=== PATIENT | female | born 1960 | race Caucasian/White ===

== ENCOUNTER 2016-08-28 11:05 | Emergency (ER) | payer OTHER ==
[2016-08-28] MEDS ORDERED: ONDANSETRON 4MG/2ML VIAL (J2405) As Ordered ONE (11:48)
[2016-08-28] MEDS ORDERED: MORPHINE 4 MG/ML 1ML SYRINGE As Ordered ONE (11:48)
[2016-08-28 12:03] LABS: BASO % 0.3 % (0.0-1.0); EOS # 0.1 K/mm3 (0.0-0.50); EOS % 1.3 % (0.0-3.0); LARGE UNSTAINED CELL % 0.6 % (0.0-4.0); LYMPH # 0.6 K/mm3 (1.5-4.5); LYMPH % 9.1 % (24.0-44.0); MEAN CORPUSCULAR HEMOGLOBIN 29.5 pg (27.0-33.0); MEAN CORPUSCULAR HGB CONC 34.1 g/dl (32.0-36.5); MEAN CORPUSCULAR VOLUME 86.6 fl (80.0-96.0); MONO # 0.4 K/mm3 (0.0-0.8); MONO % 5.5 % (0.0-5.0); NEUTROPHILS # 5.4 K/mm3 (1.8-7.7); NEUTROPHILS % 83.3 % (36.0-66.0); PLATELET COUNT, AUTOMATED 226 k/mm3 (150-450); RED CELL DISTRIBUTION WIDTH 13.5 % (11.5-14.5); WHITE BLOOD COUNT 6.4 K/mm3 (4.0-10.0)
[2016-08-28] MEDS ORDERED: GASTROGRAFIN SOLUTION 30ML (Q9963) As Ordered ONE (12:03)
[2016-08-28 12:14] LABS: INR 0.76
[2016-08-28 12:34] LABS: ALBUMIN 4.2 GM/DL (3.2-5.2); ALBUMIN/GLOBULIN RATIO 0.98 (1.00-1.93); ALKALINE PHOSPHATASE 86 U/L (45-117); ALT/SGPT 27 U/L (12-78); ANION GAP 9 MEQ/L (8-16); AST/SGOT 19 U/L (15-37); BILIRUBIN,DIRECT < 0.1 MG/DL (0.0-0.2); BILIRUBIN,TOTAL 0.3 MG/DL (0.2-1.0); BLOOD UREA NITROGEN 16 MG/DL (7-18); CALCIUM LEVEL 8.9 MG/DL (8.5-10.1); CARBON DIOXIDE LEVEL 25 MEQ/L (21-32); CHLORIDE LEVEL 106 MEQ/L (98-107); CREATININE FOR GFR 0.89 MG/DL (0.55-1.02); GLOMERULAR FILTRATION RATE > 60.0 (>51); GLUCOSE, FASTING 110 MG/DL (70-105); POTASSIUM SERUM 3.8 MEQ/L (3.5-5.1); SODIUM LEVEL 140 MEQ/L (136-145); TOTAL PROTEIN 8.5 GM/DL (6.4-8.2)
[2016-08-28] MEDS ORDERED: ISOVUE-370 76% 100ML VIAL (Q9967) As Ordered ONE (13:09)
--- NOTE | 2016-08-28 14:15 | REP ---
CT study of the abdomen and pelvis with IV and oral contrast: History: Diverticulitis. Comparison CT study is from June 27, 2007. CT contrast dose: 100 mL of Isovue [address] findings: Digital preliminary needle control cheniller radiograph is unremarkable. The lung bases are essentially clear. The liver and the spleen are normal in size. There are two tiny well circumscribed low density areas in the liver consistent with cysts. The largest of these measures 1 cm. Spleen is homogeneous. No pancreatic abnormalities observed. No gallbladder abnormality is observed. No adrenal lesion is seen on either side. The kidneys enhance symmetrically and are morphologically intact. No retroperitoneal mass or adenopathy is seen. Normal caliber aorta is noted. The appendix is surgically absent by history. The uterus is surgically absent. No ovarian mass or adenopathy is seen. The left colon is largely empty. There is no CT evidence of diverticulosis. There is some mural thickening however in the distal colon from approximately the distal transverse segment through to the rectum. This may reflect ulcerative colitis. No small bowel abnormality is appreciated. No abdominal wall defect is seen. Bone window settings show no bony destructive lesion. Impression: Mild enterocolitis picture affecting the distal colon. Question ulcerative colitis. No mass obstruction or abnormal fluid collection is seen. Small cysts in the liver. Signed by Alan Wesley MD 08/28/2016 02:42 P
[2016-08-28] MEDS ORDERED: ONDANSETRON 4 MG ORAL DISINTEGRATING TAB (S0181) As Ordered ONE (14:52)
[2016-08-28] MEDS ORDERED: PERCOCET 5MG/325MG TAB As Ordered ONE (15:19)
[2016-08-28] MEDS ORDERED: metroNIDAZOLE (FLAGYL) 250 MG TAB As Ordered ONE (15:19)
[2016-08-28] MEDS ORDERED: CIPROFLOXACIN 500 MG TAB As Ordered ONE (15:19)
--- NOTE | 2016-08-28 16:00 | EDDOCDS ---
Nurse's Notes [facility] Name: Liset Torres Age: 56 yrs Sex: Female : 1960 Arrival Date: 08/28/2016 Time: 11:05 Bed I1 / M1 Private MD: LATOSHA Albright Diagnosis: Left sided colitis Presentation: 08/28 11:08 Presenting complaint: Patient states: woke up with abdominal pain/diarrhea, blood in rs3 stools since this morning. Adult Sepsis Screening: The patient does not have new or worsening altered mentation. Patient's respiratory rate is less than 22. Systolic blood pressure is greater than 100. Patient has a qSOFA score of 0- Negative Sepsis Screen. Suicide/Homicide risk assessment- the patient denies having any suicidal and/or homicidal ideations and does not present with any other emotional, behavioral or mental health complaints. Status: Retired. Transition of care: patient was not received from another setting of care. 11:08 Acuity: BOBBY Level 3 rs3 11:08 Method Of Arrival: Walkin/Carried/Asstd rs3 Triage Assessment: 11:11 General: Appears in no apparent distress. Pain: Location: abdomen. Pt Declines HIV rs3 testing. Historical: - Allergies: no known allergies; - Home Meds: 1. lisinopril 10 mg Oral tab 1 tab once daily (Last dose: 08/27/2016) 2. aspirin 81 mg Oral tbef 81 mg daily - PMHx: Hypertension; seborrheic dermatitis; - PSHx: Hysterectomy; Appendectomy; - Social history: Smoking status: Patient states was never smoker of tobacco. No barriers to communication noted, The patient speaks fluent Uzbek. - : The pt / caregiver states he / she is not on anticoagulants. Home medication list is obtained from the patient. - Exposure Risk Screening:: None identified. Screenin:15 Screening information is obtained from the patient. Fall risk: No risks identified. kr3 Assistance ADL's: requires no assistance with activities of daily living. Abuse/DV Screen: The patient / caregiver reports he/she is: not in a situation that causes fear, pain or injury. Nutritional screening: No deficits noted. Advance Directives: Currently, there is no health care proxy. home support is adequate. Assessment: 12:14 Reassessment: Patient appears in no apparent distress at this time. General: Appears kr3 comfortable. Pain: Location: abdomen. Pain: Is episodic. Respiratory: Respiratory effort is even, unlabored. GI: Reports nausea. GI: Reports bloody stool this AM. Derm: Skin is pink, warm & dry. 12:15 Reassessment: pain 'is not very bad at this time'. kr3 12:40 Reassessment: Patient appears in no apparent distress at this time. Patient denies pain kr3 at this time. reports pain is gone and nausea is gone. 13:24 Reassessment: Patient appears in no apparent distress at this time. remains pain and kr3 nausea free. 14:40 Reassessment: Patient appears in no apparent distress at this time. Patient states kr3 feeling better. Pain: Denies pain. Respiratory: Respiratory effort is even, unlabored. 14:43 Pain: Location: right lower quadrant and left lower quadrant Pain currently is 3 out of kr3 10 on a pain scale. GI: Reports nausea. 15:11 General: Appears popsicle initiated. No vomiting since arrival. Will challenge with [facility] oral meds when popsicle is tolerated.. 15:23 General: Appears 1/2 popsicle taken and retained. reports 3/10 discomfort. jmk 15:44 General: Appears states is receptive for discharge.. [facility] Vital Signs: 11:06 BP 151 / 87; Pulse 72; Resp 18; Temp 98.5; Pulse Ox 100% ; Weight 70.31 kg; Height 5 elp ft. 0 in. (152.40 cm); 15:58 BP 110 / 63; Pulse 73; Resp 16; Temp 98.3; jmk 11:06 Body Mass Index 30.27 (70.31 kg, 152.40 cm) [facility] Vitals: 11:06 Log In Time: August 28, 2016 at 11:04. [facility] ED Course: 11:06 Patient visited by Kristy Byrd PCA. elp 11:06 LATOSHA Albright is Private Physician. elp 11:06 Patient moved to Waiting elp 11:07 Patient visited by Kristy Byrd PCA. elp 11:07 Patient moved to Pre RCE elp 11:09 Triage Initiated rs3 11:35 [facility] cc10 11:35 Mayank Mckenzie MD is Attending Physician. cc10 11:35 Patient moved to Triage 1 ar2 11:36 Patient visited by Alexander Be PA-C. cc10 11:36 Patient visited by Alexander Be PA-C. cc10 11:45 Patient moved to I4 / M4 ms2 11:59 Patient moved to I7 / 29 dem1 12:08 Patient visited by Anahi Stratton RN. kr3 12:15 The patient / caregiver is instructed regarding the plan of care and ED course. kr3 Accompanied by Family Member, Patient has correct armband on for positive identification. Placed in gown. Bed in low position. Call light in reach. Side rails up X 1. 12:40 Patient visited by Aanhi Stratton RN. kr3 13:24 Patient visited by Anahi Stratton RN. kr3 13:38 Patient moved to I1 / M1 kr3 13:50 Assisted to bathroom. kr3 14:01 Patient visited by Anahi Stratton RN. kr3 14:38 CT ABD & PELVIS: IV and Oral Contrast Returned. EDMS 14:40 Patient visited by Anahi Stratton RN. kr3 14:40 Assisted to bathroom. kr3 14:40 Inserted saline lock: 20 gauge in right antecubital area. No procedures done that kr3 require assistance. 15:04 [facility] Payment Agreement was scanned into [employer] and attached to record. mm15 15:12 Patient visited by Albino Bailon RN. jmk 15:24 Patient visited by Albino Bailon,MARIA INES. jmk 15:45 Patient visited by Albino Bailon RN. jmk 15:47 Albright, [facility] is Referral Physician. cc10 15:58 Discontinued lock intact, bleeding controlled, pressure dressing applied, No jmk redness/swelling at site. Administered Medications: 11:56 Drug: NS 0.9% 1000 ml [sodium chloride 0.9 % intravenous solution] Route: IV; Rate: kr3 bolus; Site: right antecubital; 11:57 Drug: Ondansetron 4 mg [ondansetron HCl 2 mg/mL intravenous solution (2 mL)] Route: kr3 IVP; Site: right antecubital; 12:08 Follow up: Response: Nausea is decreased kr3 12:01 Drug: morphine 4 mg [morphine 4 mg/mL intravenous cartridge (1 mL)] Route: IVP; Site: kr3 right antecubital; 12:08 Drug: Diatrizoate Meglumine & Sodium 10 ml [diatrizoate meglumine and diat.sodium 66 kr3 %-10 % oral solution (10 mL)] Route: PO; 12:30 Drug: Diatrizoate Meglumine & Sodium 10 ml [diatrizoate meglumine and diat.sodium 66 kr3 %-10 % oral solution (10 mL)] Route: PO; 14:54 Drug: Ondansetron ODT 4 mg [ondansetron 4 mg disintegrating tablet (1 tabs)] Route: PO; dada 15:22 Drug: metroNIDAZOLE 500 mg Route: PO; esther 15:23 Drug: oxyCODONE-acetaminophen 1 tabs [oxycodone-acetaminophen 5 mg-325 mg tablet (1 jmk tabs)] Route: PO; 15:23 Drug: Ciprofloxacin 500 mg [ciprofloxacin 500 mg tablet (1 tabs)] Route: PO; [facility] Order Results: Lab Order: Basic Metabolic Profile; SPEC'M 08/28/16 11:51 Test: GLUCOSE, FASTING; Value: 110; Range: 70-105; Abnormal: Above high normal; Units: MG/DL; Status: F Test: BLOOD UREA NITROGEN; Value: 16; Range: 7-18; Units: MG/DL; Status: F Test: CREATININE FOR GFR; Value: 0.89; Range: 0.55-1.02; Units: MG/DL; Status: F Test: GLOMERULAR FILTRATION RATE; Value: > 60.0; Range: >51; Status: F Test: SODIUM LEVEL; Value: 140; Range: 136-145; Units: MEQ/L; Status: F Test: POTASSIUM SERUM; Value: 3.8; Range: 3.5-5.1; Units: MEQ/L; Status: F Test: CHLORIDE LEVEL; Value: 106; Range: 98-107; Units: MEQ/L; Status: F Test: CARBON DIOXIDE LEVEL; Value: 25; Range: 21-32; Units: MEQ/L; Status: F Test: ANION GAP; Value: 9; Range: 8-16; Units: MEQ/L; Status: F Test: CALCIUM LEVEL; Value: 8.9; Range: 8.5-10.1; Units: MG/DL; Status: F Test Note: ; Units are mL/min/1.73 m2 Chronic Kidney Disease Staging per NKF: Stage I & II GFR >=60 Normal to Mildly Decreased Stage III GFR 30-59 Moderately Decreased Stage IV GFR 15-29 Severely Decreased Stage V GFR <15 Very Little GFR Left ESRD GFR <15 on INFORMATION TECHNOLOGY ADVISOR Lab Order: CBC with Diff; SPEC'M 08/28/16 11:56 Test: WHITE BLOOD COUNT; Value: 6.4; Range: 4.0-10.0; Units: K/mm3; Status: F Test: RED BLOOD COUNT; Value: 4.90; Range: 4.00-5.40; Units: M/mm3; Status: F Test: HEMOGLOBIN; Value: 14.5; Range: 12.0-16.0; Units: g/dl; Status: F Test: HEMATOCRIT; Value: 42.4; Range: 36.0-47.0; Units: %; Status: F Test: MEAN CORPUSCULAR VOLUME; Value: 86.6; Range: 80.0-96.0; Units: fl; Status: F Test: MEAN CORPUSCULAR HEMOGLOBIN; Value: 29.5; Range: 27.0-33.0; Units: pg; Status: F Test: MEAN CORPUSCULAR HGB CONC; Value: 34.1; Range: 32.0-36.5; Units: g/dl; Status: F Test: RED CELL DISTRIBUTION WIDTH; Value: 13.5; Range: 11.5-14.5; Units: %; Status: F Test: PLATELET COUNT, AUTOMATED; Value: 226; Range: 150-450; Units: k/mm3; Status: F Test: NEUTROPHILS %; Value: 83.3; Range: 36.0-66.0; Abnormal: Above high normal; Units: %; Status: F Test: LYMPH %; Value: 9.1; Range: 24.0-44.0; Abnormal: Below low normal; Units: %; Status: F Test: MONO %; Value: 5.5; Range: 0.0-5.0; Abnormal: Above high normal; Units: %; Status: F Test: EOS %; Value: 1.3; Range: 0.0-3.0; Units: %; Status: F Test: BASO %; Value: 0.3; Range: 0.0-1.0; Units: %; Status: F Test: LARGE UNSTAINED CELL %; Value: 0.6; Range: 0.0-4.0; Units: %; Status: F Test: NEUTROPHILS #; Value: 5.4; Range: 1.8-7.7; Units: K/mm3; Status: F Test: LYMPH #; Value: 0.6; Range: 1.5-4.5; Abnormal: Below low normal; Units: K/mm3; Status: F Test: MONO #; Value: 0.4; Range: 0.0-0.8; Units: K/mm3; Status: F Test: EOS #; Value: 0.1; Range: 0.0-0.50; Units: K/mm3; Status: F Test: BASO #; Value: 0.0; Range: 0.0-0.2; Units: K/mm3; Status: F Test: LARGE UNSTAINED CELL #; Value: 0.0; Range: 0.0-0.4; Units: K/mm3; Status: F Lab Order: Lipase; SPEC'M 08/28/16 11:51 Test: LIPASE; Value: 311; Range: 73-393; Units: U/L; Status: F Lab Order: Liver Profile; SPEC'M 08/28/16 11:51 Test: AST/SGOT; Value: 19; Range: 15-37; Units: U/L; Status: F Test: ALT/SGPT; Value: 27; Range: 12-78; Units: U/L; Status: F Test: ALKALINE PHOSPHATASE; Value: 86; Range: 45-117; Units: U/L; Status: F Test: BILIRUBIN,TOTAL; Value: 0.3; Range: 0.2-1.0; Units: MG/DL; Status: F Test: BILIRUBIN,DIRECT; Value: < 0.1; Range: 0.0-0.2; Units: MG/DL; Status: F Test: TOTAL PROTEIN; Value: 8.5; Range: 6.4-8.2; Abnormal: Above high normal; Units: GM/DL; Status: F Test: ALBUMIN; Value: 4.2; Range: 3.2-5.2; Units: GM/DL; Status: F Test: ALBUMIN/GLOBULIN RATIO; Value: 0.98; Range: 1.00-1.93; Abnormal: Below low normal; Status: F Lab Order: Partial Thromboplastin Time; [facility] 08/28/16 11:56 Test: PARTIAL THROMBOPLASTIN TIME; Value: 21.7; Range: 26.6-37.1; Abnormal: Below low normal; Units: SECONDS; Status: F Lab Order: Prothrombin Time Profile\E\INR; [facility] 08/28/16 11:56 Test: PROTHROMBIN TIME; Value: 10.7; Range: 12.3-14.5; Abnormal: Below low normal; Units: SECONDS; Status: F Test: INR; Value: 0.76; Status: F Test Note: ; THERAPUTIC HUMAN INR VALUES INDICATIONS NORMAL RANGES PROPHYLAXIS/TREATMENT OF: VENOUS THROMBOSIS 2.0-3.0 PULMONARY EMBOLISM 2.0-3.0 PREVENTION OF SYSTEMIC EMBOLISM FROM: TISSUE HEART VALVES 2.0-3.0 ACUTE MYOCARDIAL INFARCTION 2.0-3.0 VALVULAR HEART DISEASE 2.0-3.0 ATRIAL FIBRILLATION 2.0-3.0 MECHANICAL VALVES(HIGH RISK) 2.5-3.5 RECURRENT MYOCARDIAL INFARCTION 2.5-3.5 Lab Order: Urinalysis; [facility] 08/28/16 13:55 Test: APPEARANCE, URINE; Value: CLEAR; Range: CLEAR; Status: F Test: COLOR, URINE; Value: YELLOW; Range: YELLOW; Status: F Test: PH,URINE; Value: 6.0; Range: 5.0-9.0; Units: UNITS; Status: F Test: SPECIFIC GRAVITY URINE AUTO; Value: 1.041; Range: 1.002-1.035; Status: F Test: PROTEIN, URINE AUTO; Value: NEGATIVE; Range: NEGATIVE; Units: mg/dL; Status: F Test: GLUCOSE, URINE (UA) AUTO; Value: NEGATIVE; Range: NEGATIVE; Units: mg/dL; Status: F Test: KETONE, URINE AUTO; Value: NEGATIVE; Range: NEGATIVE; Units: mg/dL; Status: F Test: UROBILINOGEN, URINE AUTO; Value: 0.2; Range: 0.0-2.0; Units: mg/dL; Status: F Test: BILIRUBIN, URINE AUTO; Value: NEGATIVE; Range: NEGATIVE; Status: F Test: NITRITE, URINE AUTO; Value: NEGATIVE; Range: NEGATIVE; Status: F Test: LEUKOCYTE ESTERASE, URINE AUTO; Value: NEGATIVE; Range: NEGATIVE; Status: F Test: BLOOD, URINE BLOOD; Value: NEGATIVE; Range: NEGATIVE; Status: F Test: WBC, URINE AUTO; Value: 1; Range: 0-3; Units: /HPF; Status: F Test: RBC, URINE AUTO; Value: 1; Range: 0-3; Units: /HPF; Status: F Test: BACTERIA, URINE AUTO; Value: NEGATIVE; Range: NEGATIVE; Status: F Test: SQUAMOUS EPITHELIAL CELL UR AU; Value: 1; Range: 0-6; Units: /HPF; Status: F Test: HYALINE CAST, URINE AUTO; Value: 0; Range: 0-1; Units: /LPF; Status: F Radiology Order: CT ABD & PELVIS: IV and Oral Contrast Test: CT ABD & PELVIS: IV and Oral Contrast REASON FOR EXAMINATION: Diverticulitis; CT study of the abdomen and pelvis with IV and oral contrast:; ; History: Diverticulitis.; ; Comparison CT study is from June 27, 2007.; ; CT contrast dose: 100 mL of Isovue 370 is administered intravenously.; ; CT findings: Digital preliminary advance scout radiograph is unremarkable. The lung; bases are essentially clear. The liver and the spleen are normal in size. There; are two tiny well circumscribed low density areas in the liver consistent with; cysts. The largest of these measures 1 cm. Spleen is homogeneous. No; pancreatic abnormalities observed. No gallbladder abnormality is observed. No; adrenal lesion is seen on either side. The kidneys enhance symmetrically and are; morphologically intact. No retroperitoneal mass or adenopathy is seen. Normal; caliber aorta is noted. The appendix is surgically absent by history. The; uterus is surgically absent. No ovarian mass or adenopathy is seen. The left; colon is largely empty. There is no CT evidence of diverticulosis. There is; some mural thickening however in the distal colon from approximately the distal; transverse segment through to the rectum. This may reflect ulcerative colitis.; No small bowel abnormality is appreciated. No abdominal wall defect is seen.; Bone window settings show no bony destructive lesion.; ; Impression:; ; Mild enterocolitis picture affecting the distal colon. Question ulcerative; colitis. No mass obstruction or abnormal fluid collection is seen. Small cysts; in the liver.; ; ; Signed by; Alan Wesley MD 08/28/2016 02:42 P; Outcome: 13:24 CT Study completed. kr3 15:47 Discharge ordered by Provider. cc10 15:58 Discharge Assessment: Patient awake, alert and oriented x 3. No cognitive and/or jmk functional deficits noted. Patient verbalized understanding of disposition instructions. patient administered narcotics - no. The following High Risk Discharge criteria are identified: None. Discharged to home ambulatory, with family. Condition: good. Discharge instructions given to patient, Instructed on discharge instructions, follow up and referral plans. medication usage, no driving heavy equipment, diet, Demonstrated understanding of instructions, medications, Pt was receptive of discharge instructions/ teaching. Property :Personal belongings accompany Pt. 16:00 Patient left the ED. paul Signatures: Dispatcher [employer] EDMS Vinay LeeRN RN ms2 Albino Bailon RN RN lizbethk Anahi Stratton,RN RN kr3 Sathya Stewart, PA-C PA-C rita2 Shani BettsRN RN rs3 Gigi Choudhury1 Gee Weinstein mm15 Kristy Byrd, CADDIE CADDIE Rich VitaleRN RN Alexander Freedman, PA-C PA-C cc10 Corrections: (The following items were deleted from the chart) 12:16 12:14 Pain: Is episodic kr3 kr3 15:12 14:54 Ciprofloxacin 500 mg PO lizbethk lizbethk MTDD
--- NOTE | 2016-08-28 16:00 | EDDOCDS ---
Physician Documentation [facility] Name: Liset Torres Age: 56 yrs Sex: Female : 1960 Arrival Date: 08/28/2016 Time: 11:05 Bed I1 / M1 Private MD: LATOSHA Albright Disposition: 08/28/16 15:47 Discharged to Home/Self Care. Impression: Left sided colitis. - Condition is Stable. - Discharge Instructions: Clear Liquid Diet, Diverticulitis. - Prescriptions for Cipro 500 mg Oral Tablet - take 1 tablet by ORAL route every 12 hours for 10 days; 20 tablet. Flagyl 500 mg Oral Tablet - take 1 tablet by ORAL route every 8 hours for 10 days; 30 tablet. Percocet 5- 325 mg Oral Tablet - take 1 tablet by ORAL route every 6 hours As needed MDD: 4 tabs; 16 tablet. ZOFRAN ODT 4 mg - dissolve 1 tablet by ORAL route 4 times per day As needed do not chew, do not swallow whole; 10 tablet. - Medication Reconciliation, Local Pharmacy Hours form. - Follow up: Emergency Department; When: As needed. Follow up: LATOSHA Albright; When: 2 - 3 days; Reason: Wound/Symptom Recheck, Recheck today's complaints, Worsening of conditions, Continuance of care. - Problem is new. - Symptoms have improved. Historical: - Allergies: no known allergies; - Home Meds: 1. lisinopril 10 mg Oral tab 1 tab once daily (Last dose: 08/27/2016) 2. aspirin 81 mg Oral tbef 81 mg daily - PMHx: Hypertension; seborrheic dermatitis; - PSHx: Hysterectomy; Appendectomy; - Social history: Smoking status: Patient states was never smoker of tobacco. No barriers to communication noted, The patient speaks fluent Ukrainian. - : The pt / caregiver states he / she is not on anticoagulants. Home medication list is obtained from the patient. - Exposure Risk Screening:: None identified. Vital Signs: 08/28 11:06 BP 151 / 87; Pulse 72; Resp 18; Temp 98.5; Pulse Ox 100% ; Weight 70.31 kg / 155.01 elp lbs; Height 5 ft. 0 in. (152.40 cm); 15:58 BP 110 / 63; Pulse 73; Resp 16; Temp 98.3; jmk 11:06 Body Mass Index 30.27 (70.31 kg, 152.40 cm) elp MDM: 11:46 NS 0.9% 1000 ml IV at bolus once ordered. cc10 11:46 Ondansetron 4 mg IVP once ordered. cc10 11:46 IV Saline Lock ordered. cc10 11:46 Undress patient appropriately for examination ordered. cc10 11:46 Stool samples ordered. cc10 11:46 morphine 4 mg IVP once ordered. cc10 11:47 Basic Metabolic Profile Ordered. EDMS 11:48 CBC with Diff Ordered. EDMS 11:48 Lipase Ordered. EDMS 11:48 Liver Profile Ordered. EDMS 11:48 Partial Thromboplastin Time Ordered. EDMS 11:48 Prothrombin Time Profile\E\INR Ordered. EDMS 11:48 Urinalysis Ordered. EDMS 11:48 CT ABD & PELVIS: IV and Oral Contrast Ordered. EDMS 11:48 NOTHING BY MOUTH+DIET ordered. EDMS 11:49 GASTROINTESTINAL (GI) PANEL Ordered. EDMS 11:53 Diatrizoate Meglumine & Sodium Liquid 10 ml PO once; mix in 290cc of water give at kr3 12:00 ordered. 11:53 Diatrizoate Meglumine & Sodium Liquid 10 ml PO once; mix in 290cc of water give at 1230 kr3 ordered. 13:18 Basic Metabolic Profile Reviewed. cc10 13:18 CBC with Diff Reviewed. cc10 13:18 Liver Profile Reviewed. cc10 13:18 Partial Thromboplastin Time Reviewed. cc10 13:18 Prothrombin Time Profile\E\INR Reviewed. cc10 13:18 Lipase Reviewed. cc10 13:53 Financial registration complete. mm15 14:50 oxyCODONE-acetaminophen 5 mg-325 mg 1 tabs PO once ordered. cc10 14:50 Ondansetron ODT Oral Disintegrating Tablet 4 mg PO once ordered. cc10 14:50 Ciprofloxacin 500 mg PO once ordered. cc10 14:50 metroNIDAZOLE 500 mg PO once ordered. cc10 15:04 [facility] Payment Agreement was scanned into [employer] and attached to record. mm15 15:12 Ciprofloxacin 500 mg PO once ordered. paul Administered Medications: 11:56 Drug: NS 0.9% 1000 ml [sodium chloride 0.9 % intravenous solution] Route: IV; Rate: kr3 bolus; Site: right antecubital; 11:57 Drug: Ondansetron 4 mg [ondansetron HCl 2 mg/mL intravenous solution (2 mL)] Route: kr3 IVP; Site: right antecubital; 12:08 Follow up: Response: Nausea is decreased kr3 12:01 Drug: morphine 4 mg [morphine 4 mg/mL intravenous cartridge (1 mL)] Route: IVP; Site: kr3 right antecubital; 12:08 Drug: Diatrizoate Meglumine & Sodium 10 ml [diatrizoate meglumine and diat.sodium 66 kr3 %-10 % oral solution (10 mL)] Route: PO; 12:30 Drug: Diatrizoate Meglumine & Sodium 10 ml [diatrizoate meglumine and diat.sodium 66 kr3 %-10 % oral solution (10 mL)] Route: PO; 14:54 Drug: Ondansetron ODT 4 mg [ondansetron 4 mg disintegrating tablet (1 tabs)] Route: PO; dada 15:22 Drug: metroNIDAZOLE 500 mg Route: PO; paul 15:23 Drug: oxyCODONE-acetaminophen 1 tabs [oxycodone-acetaminophen 5 mg-325 mg tablet (1 jmk tabs)] Route: PO; 15:23 Drug: Ciprofloxacin 500 mg [ciprofloxacin 500 mg tablet (1 tabs)] Route: PO; paul Signatures: Dispatcher [employer] Albino EstradaRN RN lizbethk Anahi StrattonRN RN kr3 Shani Betts RN RN rs3 Gee Weinstein mm15 Alexander Be PA-C PAAlexander cc10 Rich Akins RN The chart was reviewed and I authenticate all verbal orders and agree with the evaluation and treatment provided.Attachments: 15:04 [facility] Payment Agreement mm15 MTDD
--- NOTE | 2016-08-30 17:00 | EDDOCDS ---
Nurse's Notes [facility] Name: Liset Torres Age: 56 yrs Sex: Female : 1960 Arrival Date: 08/28/2016 Time: 11:05 Bed I1 / M1 Private MD: LATOSHA Albright Diagnosis: Left sided colitis Presentation: 08/28 11:08 Presenting complaint: Patient states: woke up with abdominal pain/diarrhea, blood in rs3 stools since this morning. Adult Sepsis Screening: The patient does not have new or worsening altered mentation. Patient's respiratory rate is less than 22. Systolic blood pressure is greater than 100. Patient has a qSOFA score of 0- Negative Sepsis Screen. Suicide/Homicide risk assessment- the patient denies having any suicidal and/or homicidal ideations and does not present with any other emotional, behavioral or mental health complaints. Status: Retired. Transition of care: patient was not received from another setting of care. 11:08 Acuity: BOBBY Level 3 rs3 11:08 Method Of Arrival: Walkin/Carried/Asstd rs3 Triage Assessment: 11:11 General: Appears in no apparent distress. Pain: Location: abdomen. Pt Declines HIV rs3 testing. Historical: - Allergies: no known allergies; - Home Meds: 1. lisinopril 10 mg Oral tab 1 tab once daily (Last dose: 08/27/2016) 2. aspirin 81 mg Oral tbef 81 mg daily - PMHx: Hypertension; seborrheic dermatitis; - PSHx: Hysterectomy; Appendectomy; - Social history: Smoking status: Patient states was never smoker of tobacco. No barriers to communication noted, The patient speaks fluent Romanian. - : The pt / caregiver states he / she is not on anticoagulants. Home medication list is obtained from the patient. - Exposure Risk Screening:: None identified. Screenin:15 Screening information is obtained from the patient. Fall risk: No risks identified. kr3 Assistance ADL's: requires no assistance with activities of daily living. Abuse/DV Screen: The patient / caregiver reports he/she is: not in a situation that causes fear, pain or injury. Nutritional screening: No deficits noted. Advance Directives: Currently, there is no health care proxy. home support is adequate. Assessment: 12:14 Reassessment: Patient appears in no apparent distress at this time. General: Appears kr3 comfortable. Pain: Location: abdomen. Pain: Is episodic. Respiratory: Respiratory effort is even, unlabored. GI: Reports nausea. GI: Reports bloody stool this AM. Derm: Skin is pink, warm & dry. 12:15 Reassessment: pain 'is not very bad at this time'. kr3 12:40 Reassessment: Patient appears in no apparent distress at this time. Patient denies pain kr3 at this time. reports pain is gone and nausea is gone. 13:24 Reassessment: Patient appears in no apparent distress at this time. remains pain and kr3 nausea free. 14:40 Reassessment: Patient appears in no apparent distress at this time. Patient states kr3 feeling better. Pain: Denies pain. Respiratory: Respiratory effort is even, unlabored. 14:43 Pain: Location: right lower quadrant and left lower quadrant Pain currently is 3 out of kr3 10 on a pain scale. GI: Reports nausea. 15:11 General: Appears popsicle initiated. No vomiting since arrival. Will challenge with [facility] oral meds when popsicle is tolerated.. 15:23 General: Appears 1/2 popsicle taken and retained. reports 3/10 discomfort. jmk 15:44 General: Appears states is receptive for discharge.. [facility] Vital Signs: 11:06 BP 151 / 87; Pulse 72; Resp 18; Temp 98.5; Pulse Ox 100% ; Weight 70.31 kg; Height 5 elp ft. 0 in. (152.40 cm); 15:58 BP 110 / 63; Pulse 73; Resp 16; Temp 98.3; jmk 11:06 Body Mass Index 30.27 (70.31 kg, 152.40 cm) [facility] Vitals: 11:06 Log In Time: August 28, 2016 at 11:04. [facility] ED Course: 11:06 Patient visited by Kristy Byrd PCA. elp 11:06 LATOSHA Albright is Private Physician. elp 11:06 Patient moved to Waiting elp 11:07 Patient visited by Kristy Byrd PCA. elp 11:07 Patient moved to Pre RCE elp 11:09 Triage Initiated rs3 11:35 [facility] cc10 11:35 Mayank Mckenzie MD is Attending Physician. cc10 11:35 Patient moved to Triage 1 ar2 11:36 Patient visited by Alexander Be PA-C. cc10 11:36 Patient visited by Alexander Be PA-C. cc10 11:45 Patient moved to I4 / M4 ms2 11:59 Patient moved to I7 / 29 dem1 12:08 Patient visited by Anahi Stratton RN. kr3 12:15 The patient / caregiver is instructed regarding the plan of care and ED course. kr3 Accompanied by Family Member, Patient has correct armband on for positive identification. Placed in gown. Bed in low position. Call light in reach. Side rails up X 1. 12:40 Patient visited by Anahi Stratton RN. kr3 13:24 Patient visited by Anahi Stratton RN. kr3 13:38 Patient moved to I1 / M1 kr3 13:50 Assisted to bathroom. kr3 14:01 Patient visited by Anahi Stratton RN. kr3 14:38 CT ABD & PELVIS: IV and Oral Contrast Returned. EDMS 14:40 Patient visited by Anahi Stratton RN. kr3 14:40 Assisted to bathroom. kr3 14:40 Inserted saline lock: 20 gauge in right antecubital area. No procedures done that kr3 require assistance. 15:04 [facility] Payment Agreement was scanned into [employer] and attached to record. mm15 15:12 Patient visited by Albino Bailon,MARIA INES. jmk 15:24 Patient visited by Albino Bailon,MARIA INES. jmk 15:45 Patient visited by Albino Bailon,MARIA INES. jmk 15:47 Albright, [facility] is Referral Physician. cc10 15:58 Discontinued lock intact, bleeding controlled, pressure dressing applied, No jmk redness/swelling at site. 08/29 12:54 T-Sheet-- Draft Copy was scanned into [employer] and attached to record. gb Administered Medications: 08/28 11:56 Drug: NS 0.9% 1000 ml [sodium chloride 0.9 % intravenous solution] Route: IV; Rate: kr3 bolus; Site: right antecubital; 11:57 Drug: Ondansetron 4 mg [ondansetron HCl 2 mg/mL intravenous solution (2 mL)] Route: kr3 IVP; Site: right antecubital; 12:08 Follow up: Response: Nausea is decreased kr3 12:01 Drug: morphine 4 mg [morphine 4 mg/mL intravenous cartridge (1 mL)] Route: IVP; Site: kr3 right antecubital; 12:08 Drug: Diatrizoate Meglumine & Sodium 10 ml [diatrizoate meglumine and diat.sodium 66 kr3 %-10 % oral solution (10 mL)] Route: PO; 12:30 Drug: Diatrizoate Meglumine & Sodium 10 ml [diatrizoate meglumine and diat.sodium 66 kr3 %-10 % oral solution (10 mL)] Route: PO; 14:54 Drug: Ondansetron ODT 4 mg [ondansetron 4 mg disintegrating tablet (1 tabs)] Route: PO; [facility] 15:22 Drug: metroNIDAZOLE 500 mg Route: PO; k 15:23 Drug: oxyCODONE-acetaminophen 1 tabs [oxycodone-acetaminophen 5 mg-325 mg tablet (1 jmk tabs)] Route: PO; 15:23 Drug: Ciprofloxacin 500 mg [ciprofloxacin 500 mg tablet (1 tabs)] Route: PO; [facility] Order Results: Lab Order: Basic Metabolic Profile; SPEC'M 08/28/16 11:51 Test: GLUCOSE, FASTING; Value: 110; Range: 70-105; Abnormal: Above high normal; Units: MG/DL; Status: F Test: BLOOD UREA NITROGEN; Value: 16; Range: 7-18; Units: MG/DL; Status: F Test: CREATININE FOR GFR; Value: 0.89; Range: 0.55-1.02; Units: MG/DL; Status: F Test: GLOMERULAR FILTRATION RATE; Value: > 60.0; Range: >51; Status: F Test: SODIUM LEVEL; Value: 140; Range: 136-145; Units: MEQ/L; Status: F Test: POTASSIUM SERUM; Value: 3.8; Range: 3.5-5.1; Units: MEQ/L; Status: F Test: CHLORIDE LEVEL; Value: 106; Range: 98-107; Units: MEQ/L; Status: F Test: CARBON DIOXIDE LEVEL; Value: 25; Range: 21-32; Units: MEQ/L; Status: F Test: ANION GAP; Value: 9; Range: 8-16; Units: MEQ/L; Status: F Test: CALCIUM LEVEL; Value: 8.9; Range: 8.5-10.1; Units: MG/DL; Status: F Test Note: ; Units are mL/min/1.73 m2 Chronic Kidney Disease Staging per NKF: Stage I & II GFR >=60 Normal to Mildly Decreased Stage III GFR 30-59 Moderately Decreased Stage IV GFR 15-29 Severely Decreased Stage V GFR <15 Very Little GFR Left ESRD GFR <15 on [facility] Lab Order: CBC with Diff; SPEC'M 08/28/16 11:56 Test: WHITE BLOOD COUNT; Value: 6.4; Range: 4.0-10.0; Units: K/mm3; Status: F Test: RED BLOOD COUNT; Value: 4.90; Range: 4.00-5.40; Units: M/mm3; Status: F Test: HEMOGLOBIN; Value: 14.5; Range: 12.0-16.0; Units: g/dl; Status: F Test: HEMATOCRIT; Value: 42.4; Range: 36.0-47.0; Units: %; Status: F Test: MEAN CORPUSCULAR VOLUME; Value: 86.6; Range: 80.0-96.0; Units: fl; Status: F Test: MEAN CORPUSCULAR HEMOGLOBIN; Value: 29.5; Range: 27.0-33.0; Units: pg; Status: F Test: MEAN CORPUSCULAR HGB CONC; Value: 34.1; Range: 32.0-36.5; Units: g/dl; Status: F Test: RED CELL DISTRIBUTION WIDTH; Value: 13.5; Range: 11.5-14.5; Units: %; Status: F Test: PLATELET COUNT, AUTOMATED; Value: 226; Range: 150-450; Units: k/mm3; Status: F Test: NEUTROPHILS %; Value: 83.3; Range: 36.0-66.0; Abnormal: Above high normal; Units: %; Status: F Test: LYMPH %; Value: 9.1; Range: 24.0-44.0; Abnormal: Below low normal; Units: %; Status: F Test: MONO %; Value: 5.5; Range: 0.0-5.0; Abnormal: Above high normal; Units: %; Status: F Test: EOS %; Value: 1.3; Range: 0.0-3.0; Units: %; Status: F Test: BASO %; Value: 0.3; Range: 0.0-1.0; Units: %; Status: F Test: LARGE UNSTAINED CELL %; Value: 0.6; Range: 0.0-4.0; Units: %; Status: F Test: NEUTROPHILS #; Value: 5.4; Range: 1.8-7.7; Units: K/mm3; Status: F Test: LYMPH #; Value: 0.6; Range: 1.5-4.5; Abnormal: Below low normal; Units: K/mm3; Status: F Test: MONO #; Value: 0.4; Range: 0.0-0.8; Units: K/mm3; Status: F Test: EOS #; Value: 0.1; Range: 0.0-0.50; Units: K/mm3; Status: F Test: BASO #; Value: 0.0; Range: 0.0-0.2; Units: K/mm3; Status: F Test: LARGE UNSTAINED CELL #; Value: 0.0; Range: 0.0-0.4; Units: K/mm3; Status: F Lab Order: Lipase; SPEC' 08/28/16 11:51 Test: LIPASE; Value: 311; Range: 73-393; Units: U/L; Status: F Lab Order: Liver Profile; SPEC' 08/28/16 11:51 Test: AST/SGOT; Value: 19; Range: 15-37; Units: U/L; Status: F Test: ALT/SGPT; Value: 27; Range: 12-78; Units: U/L; Status: F Test: ALKALINE PHOSPHATASE; Value: 86; Range: 45-117; Units: U/L; Status: F Test: BILIRUBIN,TOTAL; Value: 0.3; Range: 0.2-1.0; Units: MG/DL; Status: F Test: BILIRUBIN,DIRECT; Value: < 0.1; Range: 0.0-0.2; Units: MG/DL; Status: F Test: TOTAL PROTEIN; Value: 8.5; Range: 6.4-8.2; Abnormal: Above high normal; Units: GM/DL; Status: F Test: ALBUMIN; Value: 4.2; Range: 3.2-5.2; Units: GM/DL; Status: F Test: ALBUMIN/GLOBULIN RATIO; Value: 0.98; Range: 1.00-1.93; Abnormal: Below low normal; Status: F Lab Order: Partial Thromboplastin Time; [facility]' 08/28/16 11:56 Test: PARTIAL THROMBOPLASTIN TIME; Value: 21.7; Range: 26.6-37.1; Abnormal: Below low normal; Units: SECONDS; Status: F Lab Order: Prothrombin Time Profile\E\INR; [facility] 08/28/16 11:56 Test: PROTHROMBIN TIME; Value: 10.7; Range: 12.3-14.5; Abnormal: Below low normal; Units: SECONDS; Status: F Test: INR; Value: 0.76; Status: F Test Note: ; THERAPUTIC HUMAN INR VALUES INDICATIONS NORMAL RANGES PROPHYLAXIS/TREATMENT OF: VENOUS THROMBOSIS 2.0-3.0 PULMONARY EMBOLISM 2.0-3.0 PREVENTION OF SYSTEMIC EMBOLISM FROM: TISSUE HEART VALVES 2.0-3.0 ACUTE MYOCARDIAL INFARCTION 2.0-3.0 VALVULAR HEART DISEASE 2.0-3.0 ATRIAL FIBRILLATION 2.0-3.0 MECHANICAL VALVES(HIGH RISK) 2.5-3.5 RECURRENT MYOCARDIAL INFARCTION 2.5-3.5 Lab Order: Urinalysis; [facility] 08/28/16 13:55 Test: APPEARANCE, URINE; Value: CLEAR; Range: CLEAR; Status: F Test: COLOR, URINE; Value: YELLOW; Range: YELLOW; Status: F Test: PH,URINE; Value: 6.0; Range: 5.0-9.0; Units: UNITS; Status: F Test: SPECIFIC GRAVITY URINE AUTO; Value: 1.041; Range: 1.002-1.035; Status: F Test: PROTEIN, URINE AUTO; Value: NEGATIVE; Range: NEGATIVE; Units: mg/dL; Status: F Test: GLUCOSE, URINE (UA) AUTO; Value: NEGATIVE; Range: NEGATIVE; Units: mg/dL; Status: F Test: KETONE, URINE AUTO; Value: NEGATIVE; Range: NEGATIVE; Units: mg/dL; Status: F Test: UROBILINOGEN, URINE AUTO; Value: 0.2; Range: 0.0-2.0; Units: mg/dL; Status: F Test: BILIRUBIN, URINE AUTO; Value: NEGATIVE; Range: NEGATIVE; Status: F Test: NITRITE, URINE AUTO; Value: NEGATIVE; Range: NEGATIVE; Status: F Test: LEUKOCYTE ESTERASE, URINE AUTO; Value: NEGATIVE; Range: NEGATIVE; Status: F Test: BLOOD, URINE BLOOD; Value: NEGATIVE; Range: NEGATIVE; Status: F Test: WBC, URINE AUTO; Value: 1; Range: 0-3; Units: /HPF; Status: F Test: RBC, URINE AUTO; Value: 1; Range: 0-3; Units: /HPF; Status: F Test: BACTERIA, URINE AUTO; Value: NEGATIVE; Range: NEGATIVE; Status: F Test: SQUAMOUS EPITHELIAL CELL UR AU; Value: 1; Range: 0-6; Units: /HPF; Status: F Test: HYALINE CAST, URINE AUTO; Value: 0; Range: 0-1; Units: /LPF; Status: F Radiology Order: CT ABD & PELVIS: IV and Oral Contrast Test: CT ABD & PELVIS: IV and Oral Contrast REASON FOR EXAMINATION: Diverticulitis; CT study of the abdomen and pelvis with IV and oral contrast:; ; History: Diverticulitis.; ; Comparison CT study is from June 27, 2007.; ; CT contrast dose: 100 mL of Isovue 370 is administered intravenously.; ; CT findings: Digital preliminary java lead architect radiograph is unremarkable. The lung; bases are essentially clear. The liver and the spleen are normal in size. There; are two tiny well circumscribed low density areas in the liver consistent with; cysts. The largest of these measures 1 cm. Spleen is homogeneous. No; pancreatic abnormalities observed. No gallbladder abnormality is observed. No; adrenal lesion is seen on either side. The kidneys enhance symmetrically and are; morphologically intact. No retroperitoneal mass or adenopathy is seen. Normal; caliber aorta is noted. The appendix is surgically absent by history. The; uterus is surgically absent. No ovarian mass or adenopathy is seen. The left; colon is largely empty. There is no CT evidence of diverticulosis. There is; some mural thickening however in the distal colon from approximately the distal; transverse segment through to the rectum. This may reflect ulcerative colitis.; No small bowel abnormality is appreciated. No abdominal wall defect is seen.; Bone window settings show no bony destructive lesion.; ; Impression:; ; Mild enterocolitis picture affecting the distal colon. Question ulcerative; colitis. No mass obstruction or abnormal fluid collection is seen. Small cysts; in the liver.; ; ; Signed by; Alan Wesley MD 08/28/2016 02:42 P; Outcome: 13:24 CT Study completed. kr3 15:47 Discharge ordered by Provider. cc10 15:58 Discharge Assessment: Patient awake, alert and oriented x 3. No cognitive and/or jmk functional deficits noted. Patient verbalized understanding of disposition instructions. patient administered narcotics - no. The following High Risk Discharge criteria are identified: None. Discharged to home ambulatory, with family. Condition: good. Discharge instructions given to patient, Instructed on discharge instructions, follow up and referral plans. medication usage, no driving heavy equipment, diet, Demonstrated understanding of instructions, medications, Pt was receptive of discharge instructions/ teaching. Property :Personal belongings accompany Pt. 16:00 Patient left the ED. paul Signatures: Dispatcher [employer] EDMS Vinay Lee,RN RN ms2 Albino BailonRN RN lizbethk Soledad Frye, Mina Reg gb Anahi Stratton,RN RN [email or web address] Sathya Stewart, PA-C PA-C rita2 Shani Betts,RN RN rs3 Gigi Choudhury1 Gee Weinstein mm15 Kristy Byrd, OPERATIONS SUPPORT ANALYST OPERATIONS SUPPORT ANALYST lornap Rich AkinsRN RN Alexander Freedman, PA-C PA-C cc10 Corrections: (The following items were deleted from the chart) 12:16 12:14 Pain: Is episodic kr3 kr3 15:12 14:54 Ciprofloxacin 500 mg PO paul miller Chart Complete MTDD
--- NOTE | 2016-08-30 17:00 | EDDOCDS ---
Physician Documentation [facility] Name: Liset Torres Age: 56 yrs Sex: Female : 1960 Arrival Date: 08/28/2016 Time: 11:05 Bed I1 / M1 Private MD: LATOSHA Albright Disposition: 08/28/16 15:47 Discharged to Home/Self Care. Impression: Left sided colitis. - Condition is Stable. - Discharge Instructions: Clear Liquid Diet, Diverticulitis. - Prescriptions for Cipro 500 mg Oral Tablet - take 1 tablet by ORAL route every 12 hours for 10 days; 20 tablet. Flagyl 500 mg Oral Tablet - take 1 tablet by ORAL route every 8 hours for 10 days; 30 tablet. Percocet 5- 325 mg Oral Tablet - take 1 tablet by ORAL route every 6 hours As needed MDD: 4 tabs; 16 tablet. ZOFRAN ODT 4 mg - dissolve 1 tablet by ORAL route 4 times per day As needed do not chew, do not swallow whole; 10 tablet. - Medication Reconciliation, Local Pharmacy Hours form. - Follow up: Emergency Department; When: As needed. Follow up: LATOSHA Albright; When: 2 - 3 days; Reason: Wound/Symptom Recheck, Recheck today's complaints, Worsening of conditions, Continuance of care. - Problem is new. - Symptoms have improved. Historical: - Allergies: no known allergies; - Home Meds: 1. lisinopril 10 mg Oral tab 1 tab once daily (Last dose: 08/27/2016) 2. aspirin 81 mg Oral tbef 81 mg daily - PMHx: Hypertension; seborrheic dermatitis; - PSHx: Hysterectomy; Appendectomy; - Social history: Smoking status: Patient states was never smoker of tobacco. No barriers to communication noted, The patient speaks fluent Romansh. - : The pt / caregiver states he / she is not on anticoagulants. Home medication list is obtained from the patient. - Exposure Risk Screening:: None identified. Vital Signs: 08/28 11:06 BP 151 / 87; Pulse 72; Resp 18; Temp 98.5; Pulse Ox 100% ; Weight 70.31 kg / 155.01 elp lbs; Height 5 ft. 0 in. (152.40 cm); 15:58 BP 110 / 63; Pulse 73; Resp 16; Temp 98.3; jmk 11:06 Body Mass Index 30.27 (70.31 kg, 152.40 cm) elp MDM: 11:46 NS 0.9% 1000 ml IV at bolus once ordered. cc10 11:46 Ondansetron 4 mg IVP once ordered. cc10 11:46 IV Saline Lock ordered. cc10 11:46 Undress patient appropriately for examination ordered. cc10 11:46 Stool samples ordered. cc10 11:46 morphine 4 mg IVP once ordered. cc10 11:47 Basic Metabolic Profile Ordered. EDMS 11:48 CBC with Diff Ordered. EDMS 11:48 Lipase Ordered. EDMS 11:48 Liver Profile Ordered. EDMS 11:48 Partial Thromboplastin Time Ordered. EDMS 11:48 Prothrombin Time Profile\E\INR Ordered. EDMS 11:48 Urinalysis Ordered. EDMS 11:48 CT ABD & PELVIS: IV and Oral Contrast Ordered. EDMS 11:48 NOTHING BY MOUTH+DIET ordered. EDMS 11:49 GASTROINTESTINAL (GI) PANEL Ordered. EDMS 11:53 Diatrizoate Meglumine & Sodium Liquid 10 ml PO once; mix in 290cc of water give at kr3 12:00 ordered. 11:53 Diatrizoate Meglumine & Sodium Liquid 10 ml PO once; mix in 290cc of water give at 1230 kr3 ordered. 13:18 Basic Metabolic Profile Reviewed. cc10 13:18 CBC with Diff Reviewed. cc10 13:18 Liver Profile Reviewed. cc10 13:18 Partial Thromboplastin Time Reviewed. cc10 13:18 Prothrombin Time Profile\E\INR Reviewed. cc10 13:18 Lipase Reviewed. cc10 13:53 Financial registration complete. mm15 14:50 oxyCODONE-acetaminophen 5 mg-325 mg 1 tabs PO once ordered. cc10 14:50 Ondansetron ODT Oral Disintegrating Tablet 4 mg PO once ordered. cc10 14:50 Ciprofloxacin 500 mg PO once ordered. cc10 14:50 metroNIDAZOLE 500 mg PO once ordered. cc10 15:04 [facility] Payment Agreement was scanned into [employer] and attached to record. mm15 15:12 Ciprofloxacin 500 mg PO once ordered. jmk 08/29 12:54 T-Sheet-- Draft Copy was scanned into [employer] and attached to record. gb Administered Medications: 08/28 11:56 Drug: NS 0.9% 1000 ml [sodium chloride 0.9 % intravenous solution] Route: IV; Rate: kr3 bolus; Site: right antecubital; 11:57 Drug: Ondansetron 4 mg [ondansetron HCl 2 mg/mL intravenous solution (2 mL)] Route: kr3 IVP; Site: right antecubital; 12:08 Follow up: Response: Nausea is decreased kr3 12:01 Drug: morphine 4 mg [morphine 4 mg/mL intravenous cartridge (1 mL)] Route: IVP; Site: kr3 right antecubital; 12:08 Drug: Diatrizoate Meglumine & Sodium 10 ml [diatrizoate meglumine and diat.sodium 66 kr3 %-10 % oral solution (10 mL)] Route: PO; 12:30 Drug: Diatrizoate Meglumine & Sodium 10 ml [diatrizoate meglumine and diat.sodium 66 kr3 %-10 % oral solution (10 mL)] Route: PO; 14:54 Drug: Ondansetron ODT 4 mg [ondansetron 4 mg disintegrating tablet (1 tabs)] Route: PO; fior 15:22 Drug: metroNIDAZOLE 500 mg Route: PO; esther 15:23 Drug: oxyCODONE-acetaminophen 1 tabs [oxycodone-acetaminophen 5 mg-325 mg tablet (1 jmk tabs)] Route: PO; 15:23 Drug: Ciprofloxacin 500 mg [ciprofloxacin 500 mg tablet (1 tabs)] Route: PO; [facility] Signatures: Dispatcher [employer] Albino EstradaRN RN lizbethk Soledad Frye, Mina Reg Anahi AlvaradoRN RN [email or web address] Shani Betts RN RN rs3 Gee Weinstein mm15 Alexander Be, PA-Catia PARich Chávez RN The chart was reviewed and I authenticate all verbal orders and agree with the evaluation and treatment provided.Attachments: 15:04 [facility] Payment Agreement mm15 08/29 12:54 T-Sheet-- Draft Copy Chart Complete MTDD
--- NOTE | 2016-08-30 17:00 | EDDOCDS ---
Physician Documentation [facility] Name: Liset Torres Age: 56 yrs Sex: Female : 1960 Arrival Date: 08/28/2016 Time: 11:05 Bed I1 / M1 Private MD: LATOSHA Albright Disposition: 08/28/16 15:47 Discharged to Home/Self Care. Impression: Left sided colitis. - Condition is Stable. - Discharge Instructions: Clear Liquid Diet, Diverticulitis. - Prescriptions for Cipro 500 mg Oral Tablet - take 1 tablet by ORAL route every 12 hours for 10 days; 20 tablet. Flagyl 500 mg Oral Tablet - take 1 tablet by ORAL route every 8 hours for 10 days; 30 tablet. Percocet 5- 325 mg Oral Tablet - take 1 tablet by ORAL route every 6 hours As needed MDD: 4 tabs; 16 tablet. ZOFRAN ODT 4 mg - dissolve 1 tablet by ORAL route 4 times per day As needed do not chew, do not swallow whole; 10 tablet. - Medication Reconciliation, Local Pharmacy Hours form. - Follow up: Emergency Department; When: As needed. Follow up: LATOSHA Albright; When: 2 - 3 days; Reason: Wound/Symptom Recheck, Recheck today's complaints, Worsening of conditions, Continuance of care. - Problem is new. - Symptoms have improved. Historical: - Allergies: no known allergies; - Home Meds: 1. lisinopril 10 mg Oral tab 1 tab once daily (Last dose: 08/27/2016) 2. aspirin 81 mg Oral tbef 81 mg daily - PMHx: Hypertension; seborrheic dermatitis; - PSHx: Hysterectomy; Appendectomy; - Social history: Smoking status: Patient states was never smoker of tobacco. No barriers to communication noted, The patient speaks fluent Croatian. - : The pt / caregiver states he / she is not on anticoagulants. Home medication list is obtained from the patient. - Exposure Risk Screening:: None identified. Vital Signs: 08/28 11:06 BP 151 / 87; Pulse 72; Resp 18; Temp 98.5; Pulse Ox 100% ; Weight 70.31 kg / 155.01 elp lbs; Height 5 ft. 0 in. (152.40 cm); 15:58 BP 110 / 63; Pulse 73; Resp 16; Temp 98.3; jmk 11:06 Body Mass Index 30.27 (70.31 kg, 152.40 cm) elp MDM: 11:46 NS 0.9% 1000 ml IV at bolus once ordered. cc10 11:46 Ondansetron 4 mg IVP once ordered. cc10 11:46 IV Saline Lock ordered. cc10 11:46 Undress patient appropriately for examination ordered. cc10 11:46 Stool samples ordered. cc10 11:46 morphine 4 mg IVP once ordered. cc10 11:47 Basic Metabolic Profile Ordered. EDMS 11:48 CBC with Diff Ordered. EDMS 11:48 Lipase Ordered. EDMS 11:48 Liver Profile Ordered. EDMS 11:48 Partial Thromboplastin Time Ordered. EDMS 11:48 Prothrombin Time Profile\E\INR Ordered. EDMS 11:48 Urinalysis Ordered. EDMS 11:48 CT ABD & PELVIS: IV and Oral Contrast Ordered. EDMS 11:48 NOTHING BY MOUTH+DIET ordered. EDMS 11:49 GASTROINTESTINAL (GI) PANEL Ordered. EDMS 11:53 Diatrizoate Meglumine & Sodium Liquid 10 ml PO once; mix in 290cc of water give at kr3 12:00 ordered. 11:53 Diatrizoate Meglumine & Sodium Liquid 10 ml PO once; mix in 290cc of water give at 1230 kr3 ordered. 13:18 Basic Metabolic Profile Reviewed. cc10 13:18 CBC with Diff Reviewed. cc10 13:18 Liver Profile Reviewed. cc10 13:18 Partial Thromboplastin Time Reviewed. cc10 13:18 Prothrombin Time Profile\E\INR Reviewed. cc10 13:18 Lipase Reviewed. cc10 13:53 Financial registration complete. mm15 14:50 oxyCODONE-acetaminophen 5 mg-325 mg 1 tabs PO once ordered. cc10 14:50 Ondansetron ODT Oral Disintegrating Tablet 4 mg PO once ordered. cc10 14:50 Ciprofloxacin 500 mg PO once ordered. cc10 14:50 metroNIDAZOLE 500 mg PO once ordered. cc10 15:04 [facility] [place] scanned into Piki and attached to record. mm15 15:12 Ciprofloxacin 500 mg PO once ordered. jmk 08/29 12:54 T-Sheet-- Draft Copy was scanned into Piki and attached to record. gb Administered Medications: 08/28 11:56 Drug: NS 0.9% 1000 ml [sodium chloride 0.9 % intravenous solution] Route: IV; Rate: kr3 bolus; Site: right antecubital; 11:57 Drug: Ondansetron 4 mg [ondansetron HCl 2 mg/mL intravenous solution (2 mL)] Route: kr3 IVP; Site: right antecubital; 12:08 Follow up: Response: Nausea is decreased kr3 12:01 Drug: morphine 4 mg [morphine 4 mg/mL intravenous cartridge (1 mL)] Route: IVP; Site: kr3 right antecubital; 12:08 Drug: Diatrizoate Meglumine & Sodium 10 ml [diatrizoate meglumine and diat.sodium 66 kr3 %-10 % oral solution (10 mL)] Route: PO; 12:30 Drug: Diatrizoate Meglumine & Sodium 10 ml [diatrizoate meglumine and diat.sodium 66 kr3 %-10 % oral solution (10 mL)] Route: PO; 14:54 Drug: Ondansetron ODT 4 mg [ondansetron 4 mg disintegrating tablet (1 tabs)] Route: PO; fior 15:22 Drug: metroNIDAZOLE 500 mg Route: PO; esther 15:23 Drug: oxyCODONE-acetaminophen 1 tabs [oxycodone-acetaminophen 5 mg-325 mg tablet (1 jmk tabs)] Route: PO; 15:23 Drug: Ciprofloxacin 500 mg [ciprofloxacin 500 mg tablet (1 tabs)] Route: PO; [facility] Signatures: Dispatcher [employer] Albino EstradaRN RN lizbethk Soledad Frye, Mina Reg Anahi AlvaradoRN RN [email or web address] Shani Betts RN RN rs3 Gee Weinstein mm15 Alexander Be, PA-Catia PARich Chávez RN The chart was reviewed and I authenticate all verbal orders and agree with the evaluation and treatment provided.Attachments: 15:04 [facility], [facility] Payment Agreement mm15 08/29 12:54 T-Sheet-- Draft Copy Chart Complete MTDD
== END 2016-08-28 16:00 | disposition home or self-care (01) ==
LOC: M ED 11:05
DX: K52.9 Noninfective gastroenteritis and colitis, unspecified (principal); I10 Essential (primary) hypertension; L21.9 Seborrheic dermatitis, unspecified; Z79.899 Other long term (current) drug therapy; Z79.82 Long term (current) use of aspirin
CPT/HCPCS: 74177; 80048; 80076; 81001; 83690; 85025; 85610; 85730; 96374; 96375; 99284; J2405; Q9963; Q9967

== ENCOUNTER → 2018-06-08 | Outpatient (REF) | payer OTHER | LOC: M SFHCLERA 11:44 | DX: R68.89 Other general symptoms and signs (principal) ==

== ENCOUNTER 2019-06-15 14:36 | Emergency (ER) | payer OTHER ==
[~2019-06-15] VITALS: Ht 152.4 cm; Wt 70.2 kg
[2019-06-15] MEDS ORDERED: LISI10TA4 (14:45)
[2019-06-15] MEDS ORDERED: SUMA50TA2 (14:45)
[2019-06-15] MEDS ORDERED: NS 500 ML IV ONE (16:15)
[2019-06-15] MEDS ORDERED: ISOVUE-370 76% 100ML VIAL (Q9967) As Ordered ONE (16:45)
[2019-06-15 16:59] LABS: BASO % 0.3 % (0.0-1.0); HEMATOCRIT 40.1 % (36.0-47.0); HEMOGLOBIN 13.4 g/dl (12.0-15.5); LYMPH # 0.9 10^3/uL (1.5-5.0); LYMPH % 22.6 % (24.0-44.0); MEAN CORPUSCULAR HEMOGLOBIN 29.1 pg (27.0-33.0); MEAN CORPUSCULAR HGB CONC 33.4 g/dl (32.0-36.5); MONO # 0.4 10^3/uL (0.0-0.8); MONO % 10.5 % (0.0-5.0); NEUTROPHILS # 2.5 10^3/uL (1.5-8.5); NEUTROPHILS % 65.3 % (36.0-66.0); PLATELET COUNT, AUTOMATED 178 10^3/uL (150-450); RED BLOOD COUNT 4.61 10^6/uL (4.00-5.40); WHITE BLOOD COUNT 3.8 10^3/uL (4.0-10.0)
[2019-06-15 17:14] LABS: ALBUMIN 4.1 GM/DL (3.2-5.2); BILIRUBIN,DIRECT 0.1 MG/DL (0.0-0.2); BILIRUBIN,TOTAL 0.5 MG/DL (0.2-1.0)
--- NOTE | 2019-06-15 17:21 | REP ---
CT of the abdomen and pelvis with IV contrast, without bowel contrast: Comparison is 08/28/2016. There is diffuse wall thickening of the distal transverse colon, descending colon and sigmoid colon, compatible with colitis in the appropriate clinical setting. This is there is no pneumoperitoneum or ascites. The visualized lung walter are unremarkable. There is a small hepatic cyst in the right lobe, unchanged. The hepatic parenchyma is otherwise unremarkable. The gallbladder, pancreas and spleen are unremarkable. The adrenals are unremarkable. The kidneys are unremarkable. Abdominal aorta is unremarkable. There is no bowel distension or obstruction. The M mesentery is unremarkable. Pelvis: There is a hysterectomy. Vaginal cuff and adnexa are unremarkable. The bladder is unremarkable. There is no ascites or adenopathy. Impression: Findings compatible with colitis of the distal transverse colon, descending colon and sigmoid colon in the appropriate clinical setting. This is similar to the comparison study. Hepatic cyst, unchanged. similar to the comparison study. Electronically Signed by Alex Bertrand MD 06/15/2019 05:13 P
[2019-06-15] MEDS ORDERED: CIPR500T3 PO (17:29)
[2019-06-15] MEDS ORDERED: FLAG500T PO (17:29)
[2019-06-15] MEDS ORDERED: CIPROFLOXACIN 500 MG TAB PO ONE (17:45)
[2019-06-15] MEDS ORDERED: metroNIDAZOLE (FLAGYL) 500 MG TAB PO ONE (17:45)
[2019-06-15 18:00] VITALS: BP 139/86
[2019-06-16] MEDS ORDERED: CIPR500T3 PO (13:26)
[2019-06-16] MEDS ORDERED: FLAG500T PO (13:26)
== END 2019-06-15 18:16 | disposition home or self-care (01) ==
LOC: M ED 14:36
DX: K52.9 Noninfective gastroenteritis and colitis, unspecified (principal); I10 Essential (primary) hypertension; G43.909 Migraine, unspecified, not intractable, without status migrainosus; Z90.49 Acquired absence of other specified parts of digestive tract; Z90.79 Acquired absence of other genital organ(s); Z91.018 Allergy to other foods; Z79.899 Other long term (current) drug therapy
CPT/HCPCS: 74177; 80047; 80076; 83605; 83690; 85025; 93041; 96360; 99284; Q9967

== ENCOUNTER → 2019-06-16 | Outpatient (REF) | payer OTHER ==
[~2019-06-16] MED LIST: CIPR500T3 PO; FLAG500T PO; LISI10TA4; SUMA50TA2
== END ==
LOC: M LAB REF 13:02
PROVIDERS: ATTEND Internal Medicine
DX: K51.90 Ulcerative colitis, unspecified, without complications (principal); R19.7 Diarrhea, unspecified

== ENCOUNTER 2019-10-16 14:44 | Emergency (ER) | payer OTHER ==
[~2019-10-16] VITALS: Ht 152.4 cm; Wt 71.4 kg
[2019-10-16 18:26] VITALS: BP 138/86
--- NOTE | 2019-10-16 18:32 | REPVR ---
PROCEDURE INFORMATION: Exam: US Pelvis Limited, Transabdominal Exam date and time: 10/16/2019 5:53 PM Age: 59 years old Clinical indication: Mass, lump, or swelling; Other: RT groin; Additional info: Right pelvic painful mass; ? Abscess vs lymphnode TECHNIQUE: Imaging protocol: Real-time transabdominal pelvic ultrasound with image documentation. Limited exam. COMPARISON: CT ABD/PEL W/IV CONTRAST ONLY 06/15/2019 4:50 PM FINDINGS: Lymph nodes: Scanning in the area of palpable abnormality in the right inguinal region demonstrates a lymph node measuring 8 x 15 x 6 mm. A normal fatty hilum is noted. IMPRESSION: A lymph node is noted in the area of palpable abnormality in the right inguinal region measuring 6 x 8 x 15 mm. Electronically signed by: Yobany Jackson On 10/16/2019 18:32:00 PM
--- NOTE | 2019-10-16 20:43 | ECGEPIP ---
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
== END 2019-10-16 18:31 | disposition home or self-care (01) ==
LOC: M ED 14:44
DX: R59.0 Localized enlarged lymph nodes (principal); R94.31 Abnormal electrocardiogram [ECG] [EKG]; Z91.018 Allergy to other foods; Z79.899 Other long term (current) drug therapy

== ENCOUNTER 2020-02-05 20:36 | Emergency (ER) | payer OTHER ==
[~2020-02-05] VITALS: Ht 152.4 cm; Wt 67.3 kg
[2020-02-05] MEDS ORDERED: KEFL500C17 PO (21:43)
[2020-02-05] MEDS ORDERED: CEPHALEXIN 500 MG CAP PO ONE (21:45)
[2020-02-05 21:53] VITALS: BP 164/90
== END 2020-02-05 21:55 | disposition home or self-care (01) ==
LOC: M ED 20:36
DX: K62.89 Other specified diseases of anus and rectum (principal); I10 Essential (primary) hypertension; Z91.018 Allergy to other foods